=== PATIENT | male | born 1965 | race African-American/Black ===

== ENCOUNTER 2017-07-17 20:13 | Emergency (ER) | payer MEDICARE, OTHER ==
[~2017-07-17] VITALS: Ht 185.4 cm; Wt 86.0 kg
[~2017-07-17 20:13] MED LIST: AMLO-512 PO; ASPI81TA39 PO; ATOR20TA86 PO; CARV25 PO; CLON-570 PO; DSS100 PO; FURO20 PO; LISI-662 PO; QUET300T2 PO; SERT100T12 PO; SLOWK8 PO
[2017-07-18] MEDS ORDERED: KETOROLAC TROMETHAMINE 30 MG/ML VIAL IM ONE (00:30)
[2017-07-18 03:43] VITALS: BP 156/93
== END 2017-07-18 03:53 | disposition home or self-care (01) ==
LOC: EMS 21:52
DX: G89.29 Other chronic pain (principal); M25.552 Pain in left hip; F31.9 Bipolar disorder, unspecified; E78.00 Pure hypercholesterolemia, unspecified; I11.0 Hypertensive heart disease with heart failure; I50.9 Heart failure, unspecified; F15.10 Other stimulant abuse, uncomplicated; F11.10 Opioid abuse, uncomplicated; Z59.0 Homelessness; W19.XXXA Unspecified fall, initial encounter; Y93.89 Activity, other specified; Y92.89 Other specified places as the place of occurrence of the external cause; Y99.8 Other external cause status
CPT/HCPCS: 73503; 96372; 99284; J1885

== ENCOUNTER 2017-08-07 21:20 | Emergency (ER) | payer MEDICARE, OTHER ==
[~2017-08-07] VITALS: Ht 185.4 cm; Wt 86.4 kg
[2017-08-07 21:58] LABS: BASOPHILS % (AUTO) 0.3 % (0.0-2.0); EOSINOPHILS % (AUTO) 0.7 % (1.0-6.0); HEMOGLOBIN 13.4 g/dL (13.5-17.5); LYMPHOCYTES # (AUTO) 0.9 K/uL (1.0-4.8); LYMPHOCYTES % (AUTO) 11.2 % (22.0-44.0); MEAN CORPUSCULAR HEMOGLOBIN 27.8 pg (26.0-34.0); MEAN CORPUSCULAR HGB CONC 33.4 G/dL (31.0-37.0); MEAN CORPUSCULAR VOLUME 83 fL (80-100); MONOCYTES # (AUTO) 0.8 K/uL (0.1-1.0); MONOCYTES % (AUTO) 9.8 % (2.0-9.0); NEUTROPHILS # (AUTO) 6.5 K/uL (1.8-7.7); PLATELET COUNT (AUTO) 245 K/uL (150-450); RED BLOOD CELL COUNT(AUTO) 4.81 MIL/uL (4.50-5.90); RED CELL DISTRIBUTION WIDTH 15.5 % (11.5-14.5)
[2017-08-07] MEDS ORDERED: IBUPROFEN 600 MG TABLET PO ONE (22:00)
[2017-08-07] MEDS ORDERED: TraMADol HCL 50 MG TABLET PO ONE (22:00)
[2017-08-07 22:08] LABS: ALANINE AMINOTRANSFERASE 18 U/L (12-78); ALBUMIN 3.3 g/dL (3.4-5.0); ALKALINE PHOSPHATASE 125 U/L (46-116); ANION GAP 9 mmol/L (8-16); ASPARTATE AMINOTRANSFERASE 18 U/L (15-37); BILIRUBIN,TOTAL 0.6 mg/dL (0.1-1.0); CARBON DIOXIDE 29 mmol/L (22-29); CHLORIDE 102 mmol/L (98-107); CREATININE 0.94 mg/dL (0.60-1.30); GLOMERULAR FILTR. RATE CALC > 60 mL/min (>60); GLUCOSE,RANDOM 132 mg/dL (70-110); SODIUM SERUM 140 mmol/L (136-145); TOTAL PROTEIN, SERUM 8.4 g/dL (6.4-8.2); UREA NITROGEN, BLOOD 17 mg/dL (7-18)
[2017-08-07 22:16] LABS: POTASSIUM 2.8 mmol/L (3.5-5.1)
[2017-08-07] MEDS ORDERED: POTASSIUM CHLORIDE 10% 40 MEQ/30 ML LIQUID UDCUP PO ONE (22:30)
[2017-08-08 00:14] VITALS: BP 142/93
== END 2017-08-08 00:39 | disposition home or self-care (01) ==
LOC: EMS 21:21
DX: S70.02XA Contusion of left hip, initial encounter (principal); E87.6 Hypokalemia; M16.0 Bilateral primary osteoarthritis of hip; F20.9 Schizophrenia, unspecified; E78.00 Pure hypercholesterolemia, unspecified; I11.0 Hypertensive heart disease with heart failure; I50.9 Heart failure, unspecified; F31.9 Bipolar disorder, unspecified; Z59.0 Homelessness; W18.39XA Other fall on same level, initial encounter; Y93.89 Activity, other specified; Y92.89 Other specified places as the place of occurrence of the external cause; Y99.8 Other external cause status
CPT/HCPCS: 36415; 72170; 80053; 85025; 99285; G0480

== ENCOUNTER → 2019-08-03 | Outpatient (CLI) | payer MEDICARE, OTHER ==
[~2019-08-03] MED LIST changes: +ACET-784 PO; -AMLO-512 PO; +AMLO10TA7 PO; +APIX5TAB PO; -ASPI81TA39 PO; -ATOR20TA86 PO; +BISA-151 PO; +CARB-101 PO; -CLON-570 PO; -DSS100 PO; -FURO20 PO; +HYDR-1475 PO; +HYDR-4455 PO; -LISI-662 PO; +LISI40TA4 PO; +MELA1TAB28 PO; +MOM30 PO; +MULT1CAP32 PO; +PANT40VI14 IVP; -QUET300T2 PO; -SERT100T12 PO; -SLOWK8 PO; +TEMA15CA PO; +TRAZ-186 PO
[2019-08-03 11:47] VITALS: BP 138/91
== END | disposition home or self-care (01) ==
LOC: SRCNTR 11:46
PROVIDERS: ATTEND Hospitalist
DX: I11.0 Hypertensive heart disease with heart failure (principal); I50.42 Chronic combined systolic (congestive) and diastolic (congestive) heart failure; M16.11 Unilateral primary osteoarthritis, right hip; I42.9 Cardiomyopathy, unspecified; G89.4 Chronic pain syndrome; F11.10 Opioid abuse, uncomplicated; F20.9 Schizophrenia, unspecified; G20 Parkinson's disease
CPT/HCPCS: G0463

== ENCOUNTER 2022-04-28 08:31 | Inpatient (IN) | payer MEDICARE, MEDICAID ==
[~2022-04-28] VITALS: Ht 172.7 cm; Wt 112.1 kg
[~2022-04-28 08:31] MED LIST changes: +AMLO-258 PO; -AMLO10TA7 PO; -CARB-101 PO; +CARB-314 PO; -HYDR-1475 PO; +HYDR25TA2 PO; -LISI40TA4 PO; +LISI40TA9 PO; +MAGN-169 PO; -MELA1TAB28 PO; -MOM30 PO
[2022-04-28] MEDS ORDERED: PROPOFOL 1000 MG/ISO-OSM 0 ML ONE (08:43)
[2022-04-28] MEDS ORDERED: KETAMINE HCL 50 MG/ML 10 ML VIAL IVP ONE (08:45)
[2022-04-28] MEDS ORDERED: KETAMINE HCL 500 MG in DEXTROSE 5%-WATER 490 ML IV PRN (08:45)
[2022-04-28] MEDS ORDERED: KETAMINE HCL 50 MG/ML 10 ML VIAL ONE (08:46)
[2022-04-28] MEDS ORDERED: FUROSEMIDE 40 MG/4 ML VIAL IVP ONE (09:00)
[2022-04-28] MEDS ORDERED: NITROGLYCERIN 2% (1 GM=INCH) OINTMENT PACKET TP ONE (09:00)
[2022-04-28 09:13] LABS: BASOPHILS % (AUTO) 0.3 % (0.0-2.0); EOSINOPHILS % (AUTO) 0 % (1.0-6.0); HEMATOCRIT 43.5 % (41-53); HEMOGLOBIN 14.2 g/dL (13.5-17.5); LYMPHOCYTES # (AUTO) 0.4 K/uL (1.0-4.8); LYMPHOCYTES % (AUTO) 2.4 % (22.0-44.0); MEAN CORPUSCULAR HEMOGLOBIN 28.6 pg (26.0-34.0); MEAN CORPUSCULAR HGB CONC 32.7 G/dL (31.0-37.0); MEAN CORPUSCULAR VOLUME 87 fL (80-100); MONOCYTES % (AUTO) 6.4 % (2.0-9.0); NEUTROPHILS # (AUTO) 14.5 K/uL (1.8-7.7); PLATELET COUNT (AUTO) 227 K/uL (150-450); RED BLOOD CELL COUNT(AUTO) 4.99 MIL/uL (4.50-5.90); RED CELL DISTRIBUTION WIDTH 14.1 % (11.5-14.5)
[2022-04-28 09:22] LABS: PROTHROMBIN TIME 11.1 SEC (9.4-11.6)
[2022-04-28 09:30] LABS: NEUTROPHILS % (AUTO) 90.9 % (40.0-70.0)
[2022-04-28 09:32] LABS: CALCIUM, TOTAL 9.5 mg/dL (8.8-10.5); CREATININE 2.78 mg/dL (0.60-1.30); POTASSIUM 3.2 mmol/L (3.5-5.1)
[2022-04-28 09:54] LABS: ABG BASE EXCESS -2.2 mmol/L (-2.0-3.0); ABG CARBOXYHEMOGLOBIN 0.4 % (0.0-1.5); ABG HCO3 23.1 mmol/L (22.0-26.0); ABG METHEMOGLOBIN 0.2 % (0.0-1.5); ABG OXYGEN CONTENT 20.8 mL/dL (15.0-23.0); ABG OXYGEN SATURATION 98.5 % (95.0-98.0); ABG OXYHEMOGLOBIN 97.9 % (94.0-100.0); ABG PCO2 36 mmHg (35-45); ABG PH 7.409 (7.35-7.450); SITE, BLOOD GAS LFT RADIAL; SOURCE, BLOOD GAS ARTERIAL; TEMPERATURE, FAHRENHEIT, BG 98.6 FAHREN (96.0-98.6)
[2022-04-28 09:55] LABS: ABG A-A DIFF O2 558.7 mmHg (10-20.0); O2 DEVICE,BLOOD GAS VENTILATOR (ROOM AIR); PEEP,BG 5 cm H2O; VT, ABG 450 ml
[2022-04-28 10:05] LABS: ALBUMIN 3.4 g/dL (3.4-5.0); BILIRUBIN,TOTAL 0.7 mg/dL (0.1-1.0); TOTAL PROTEIN, SERUM 8.8 g/dL (6.4-8.2)
[2022-04-28 10:09] LABS: COVID AG,FIA SOURCE NASAL SWAB
[2022-04-28 10:58] LABS: INFLUENZA TYPE A NEGATIVE FOR TYPE A (NEGATIVE); INFLUENZA TYPE B NEGATIVE FOR TYPE B (NEGATIVE)
[2022-04-28 11:05] LABS: APPEARANCE,URINE HAZY (CLEAR); BILIRUBIN,URINE NEGATIVE (NEGATIVE); GLUCOSE, URINE (UA) TRACE mg/dL (NEGATIVE); KETONES,URINE TRACE mg/dL (NEGATIVE); LEUKOCYTE ESTERASE ,URINE TRACE (NEGATIVE); NITRATE,URINE NEGATIVE (NEGATIVE); OCCULT BLOOD,URINE SMALL (NEGATIVE); PH,URINE 5.5 (5.0-8.0); PROTEIN,URINE 300-600,SEE CONFIRM mg/dL (NEGATIVE); SPECIFIC GRAVITIY, URINE 1.023 (1.003-1.030)
[2022-04-28 11:10] LABS: AMPHET/METH SCREEN,URINE POSITIVE (NEGATIVE); BARBITURATE SCREEN, URINE NEGATIVE (NEGATIVE); BENZODIAZEPINES SCREEN,URINE NEGATIVE (NEGATIVE); CANNABINOID SCREEN,URINE NEGATIVE (NEGATIVE); COCAINE SCREEN,URINE NEGATIVE (NEGATIVE); METHADONE SCREEN, URINE NEGATIVE (NEGATIVE); OPIATE SCREEN,URINE POSITIVE (NEGATIVE)
[2022-04-28 11:11] LABS: PHENCYCLIDINE SCREEN,URINE NEGATIVE (NEGATIVE)
[2022-04-28 11:14] LABS: SQUAMOUS EPITHELIAL CELL,UR None Seen /LPF (None Seen); SULFOSALICYLIC ACID,URINE 4+ (Negative)
[2022-04-28 11:17] LABS: BACTERIA,URINE Few /HPF (None Seen); WBC,URINE 0-2 /HPF (0-5)
[2022-04-28] MEDS: PIPERACILLIN/TAZO 3.375 GM/D5W 50 ML IV SCH ×3 (11:26→23:52)
[2022-04-28] MEDS: DOXYCYCLINE HYCLATE 100 MG in DEXTROSE 5%-WATER 100 ML IV SCH ×2 (12:00→20:47)
[2022-04-28] MEDS ORDERED: PROPOFOL 1000 MG/ISO-OSM 100 ML ONE (13:14)
[2022-04-28] MEDS: PROPOFOL 1000 MG/ISO-OSM 100 ML IV PRN ×2 (13:24→18:04)
[2022-04-28] MEDS ORDERED: PERFLUTREN PROTEIN-A MICROSPHERES 0.22 MG/ML 3 ML VIAL IVP ONE (14:15)
[2022-04-28] MEDS ORDERED: MAGNESIUM HYDROXIDE SUSPENSION 30 ML UDCUP PO PRN (15:15)
[2022-04-28] MEDS ORDERED: ALBUTEROL SULFATE 2.5 MG/0.5 ML NEB SOLUTION NEB PRN (15:15)
[2022-04-28] MEDS ORDERED: ACETAMINOPHEN 325 MG TABLET PO PRN (15:15)
[2022-04-28] MEDS ORDERED: ONDANSETRON HCL 4 MG/2 ML VIAL IVP PRN (15:15)
[2022-04-28] MEDS ORDERED: BISACODYL 10 MG RECTAL RECTAL SUPPOSITORY PR PRN (15:15)
[2022-04-28] MEDS ORDERED: IPRATROPIUM BROMIDE 0.5 MG/2.5 ML NEB SOLUTION NEB PRN (15:15)
[2022-04-28] MEDS ORDERED: ZOLPIDEM TARTRATE 5 MG TABLET PO PRN (15:15)
[2022-04-28] MEDS ORDERED: GABA-529 PO (15:27)
[2022-04-28] MEDS ORDERED: MULT-660 PO (15:27)
[2022-04-28] MEDS: BENZONATATE 100 MG CAPSULE PO SCH ×2 (16:00→20:48)
[2022-04-28] MEDS: CARBIDOPA/LEVODOPA 25-100 MG TABLET PO SCH ×2 (16:34→20:47)
[2022-04-28] MEDS ORDERED: SODIUM CHLORIDE 0.9% 250 ML IV ONE (17:56)
[2022-04-28] MEDS: FentaNYL CIT 1000MCG/0.9% NACL 100 ML IV PRN (18:11)
[2022-04-28] MEDS: MethylPREDNISolone SOD SUCC 125 MG/2 ML VIAL IVP SCH ×2 (18:12→23:53)
[2022-04-28] MEDS: IPRATROPIUM BROMIDE 0.5 MG/2.5 ML NEB SOLUTION NEB SCH (19:34)
[2022-04-28] MEDS: ALBUTEROL SULFATE 2.5 MG/0.5 ML NEB SOLUTION NEB SCH (19:34)
[2022-04-28 20:00] VITALS: BP 130/81
[2022-04-28] MEDS: APIXABAN 5 MG TABLET PO SCH (20:47)
[2022-04-28] MEDS: CARVEDILOL 25 MG TABLET PO SCH (20:47)
[2022-04-28] MEDS: DOCUSATE SODIUM 100 MG/10 ML LIQUID UDCUP NG SCH (20:48)
[2022-04-28] MEDS ORDERED: DOCUSATE SODIUM 100 MG CAPSULE PO SCH (21:00)
[2022-04-28] MEDS ORDERED: GuaiFENesin SR 600 MG ER TABLET PO SCH (21:00)
[2022-04-29] VITALS: BP 120/84
[2022-04-29] MEDS: ALBUTEROL SULFATE 2.5 MG/0.5 ML NEB SOLUTION NEB SCH ×4 (01:42→20:34)
[2022-04-29] MEDS: IPRATROPIUM BROMIDE 0.5 MG/2.5 ML NEB SOLUTION NEB SCH ×4 (01:42→20:35)
[2022-04-29] MEDS ORDERED: INFLUENZA VIRUS VACCINE QVS 2022-23 (6MO+)/PF 60 MCG/0.5 ML SYRINGE IM. ONE (03:30)
[2022-04-29 04:00] VITALS: BP 101/68
[2022-04-29] MEDS ORDERED: PROPOFOL 1000 MG/ISO-OSM 100 ML ONE (05:06)
[2022-04-29 05:19] LABS: BASOPHILS % (AUTO) 0.3 % (0.0-2.0); EOSINOPHILS % (AUTO) 0 % (1.0-6.0); HEMATOCRIT 39.1 % (41-53); LYMPHOCYTES # (AUTO) 0.5 K/uL (1.0-4.8); LYMPHOCYTES % (AUTO) 3.4 % (22.0-44.0); MEAN CORPUSCULAR HEMOGLOBIN 29.4 pg (26.0-34.0); MEAN CORPUSCULAR HGB CONC 33.3 G/dL (31.0-37.0); MEAN CORPUSCULAR VOLUME 88 fL (80-100); MONOCYTES # (AUTO) 0.4 K/uL (0.1-1.0); MONOCYTES % (AUTO) 2.8 % (2.0-9.0); NEUTROPHILS # (AUTO) 12.5 K/uL (1.8-7.7); PLATELET COUNT (AUTO) 192 K/uL (150-450); RED BLOOD CELL COUNT(AUTO) 4.42 MIL/uL (4.50-5.90); RED CELL DISTRIBUTION WIDTH 14.5 % (11.5-14.5)
[2022-04-29 05:24] LABS: NEUTROPHILS % (AUTO) 93.5 % (40.0-70.0)
[2022-04-29 05:25] LABS: CALCIUM, TOTAL 8.5 mg/dL (8.8-10.5); CREATININE 2.74 mg/dL (0.60-1.30); POTASSIUM 3.5 mmol/L (3.5-5.1)
[2022-04-29] MEDS: PIPERACILLIN/TAZO 3.375 GM/D5W 50 ML IV SCH ×3 (05:57→18:04)
[2022-04-29] MEDS: MethylPREDNISolone SOD SUCC 125 MG/2 ML VIAL IVP SCH ×3 (05:58→18:05)
[2022-04-29] MEDS: PROPOFOL 1000 MG/ISO-OSM 100 ML IV PRN ×2 (06:09→16:32)
[2022-04-29 08:00] VITALS: BP 103/74
[2022-04-29] MEDS: DOCUSATE SODIUM 100 MG/10 ML LIQUID UDCUP NG SCH ×2 (08:37→20:46)
[2022-04-29] MEDS: APIXABAN 5 MG TABLET PO SCH ×2 (08:37→20:46)
[2022-04-29] MEDS: CARBIDOPA/LEVODOPA 25-100 MG TABLET PO SCH ×3 (08:38→20:45)
[2022-04-29] MEDS: CARVEDILOL 25 MG TABLET PO SCH ×2 (08:38→20:46)
[2022-04-29] MEDS: AmLODIPine BESYLATE 10 MG TABLET PO SCH (08:38)
[2022-04-29] MEDS: DOXYCYCLINE HYCLATE 100 MG in DEXTROSE 5%-WATER 100 ML IV SCH ×2 (08:40→20:45)
[2022-04-29] MEDS ORDERED: PANTOPRAZOLE SODIUM 40 MG DR TABLET PO SCH (09:00)
[2022-04-29] MEDS: SODIUM CHLORIDE 0.9% 1,000 ML IV SCH (11:45)
[2022-04-29 11:59] LABS: APPEARANCE,URINE CLEAR (CLEAR); BILIRUBIN,URINE NEGATIVE (NEGATIVE); GLUCOSE, URINE (UA) NEGATIVE (NEGATIVE); KETONES,URINE NEGATIVE (NEGATIVE); LEUKOCYTE ESTERASE ,URINE SMALL (NEGATIVE); NITRATE,URINE NEGATIVE (NEGATIVE); OCCULT BLOOD,URINE NEGATIVE (NEGATIVE); PROTEIN,URINE TRACE mg/dL (NEGATIVE); SPECIFIC GRAVITIY, URINE 1.023 (1.003-1.030); UROBILINOGEN,URINE <=1.0 mg/dL (<=1.0)
[2022-04-29 12:00] VITALS: BP 136/90
[2022-04-29 12:01] LABS: BACTERIA,URINE None Seen /HPF (None Seen); RBC,URINE None Seen /HPF (0-2)
[2022-04-29 12:19] LABS: CREATININE,URINE RANDOM 193.9 mg/dL (30.0-125.0); PROTEIN,URINE RANDOM 47 mg/dL (0-11.9); SODIUM,URINE RANDOM 6 mmol/l (20-110); UREA NITROGEN,URINE RANDOM 641 mg/dL (350-1000)
[2022-04-29 16:00] VITALS: BP 98/67
[2022-04-29] MEDS: FentaNYL CIT 1000MCG/0.9% NACL 100 ML IV PRN (16:32)
[2022-04-29 19:49] LABS: CALCIUM, TOTAL 8.8 mg/dL (8.8-10.5); CREATININE 2.75 mg/dL (0.60-1.30); POTASSIUM 3.5 mmol/L (3.5-5.1)
[2022-04-29 19:55] LABS: ALBUMIN 2.5 g/dL (3.4-5.0); BILIRUBIN,TOTAL 0.4 mg/dL (0.1-1.0); MAGNESIUM 2.3 mg/dL (1.80-2.40); PHOSPHORUS 4.5 mg/dL (2.5-4.9); TOTAL PROTEIN, SERUM 7.8 g/dL (6.4-8.2)
[2022-04-29 20:00] VITALS: BP 106/68
[2022-04-30] VITALS: BP 114/76
[2022-04-30] MEDS: ALBUTEROL SULFATE 2.5 MG/0.5 ML NEB SOLUTION NEB SCH ×4 (01:36→19:31)
[2022-04-30] MEDS: IPRATROPIUM BROMIDE 0.5 MG/2.5 ML NEB SOLUTION NEB SCH ×4 (01:36→19:31)
[2022-04-30] MEDS: PROPOFOL 1000 MG/ISO-OSM 100 ML IV PRN (02:51)
[2022-04-30] MEDS: SODIUM CHLORIDE 0.9% 1,000 ML IV SCH ×2 (02:55→14:19)
[2022-04-30 04:00] VITALS: BP 130/78
[2022-04-30 05:27] LABS: BASOPHILS % (AUTO) 0.1 % (0.0-2.0); EOSINOPHILS % (AUTO) 0 % (1.0-6.0); HEMATOCRIT 38.9 % (41-53); HEMOGLOBIN 12.9 g/dL (13.5-17.5); LYMPHOCYTES # (AUTO) 0.4 K/uL (1.0-4.8); LYMPHOCYTES % (AUTO) 3.4 % (22.0-44.0); MEAN CORPUSCULAR HEMOGLOBIN 29.1 pg (26.0-34.0); MEAN CORPUSCULAR HGB CONC 33.3 G/dL (31.0-37.0); MEAN CORPUSCULAR VOLUME 88 fL (80-100); MONOCYTES # (AUTO) 0.6 K/uL (0.1-1.0); MONOCYTES % (AUTO) 5.3 % (2.0-9.0); NEUTROPHILS # (AUTO) 10.6 K/uL (1.8-7.7); PLATELET COUNT (AUTO) 199 K/uL (150-450); RED BLOOD CELL COUNT(AUTO) 4.44 MIL/uL (4.50-5.90); RED CELL DISTRIBUTION WIDTH 14.3 % (11.5-14.5)
[2022-04-30 05:31] LABS: NEUTROPHILS % (AUTO) 91.2 % (40.0-70.0)
[2022-04-30 05:35] LABS: CALCIUM, TOTAL 8.6 mg/dL (8.8-10.5); CREATININE 2.41 mg/dL (0.60-1.30); MAGNESIUM 2.2 mg/dL (1.80-2.40); PHOSPHORUS 4.3 mg/dL (2.5-4.9); POTASSIUM 3.3 mmol/L (3.5-5.1)
[2022-04-30] MEDS: MethylPREDNISolone SOD SUCC 125 MG/2 ML VIAL IVP SCH ×5 (05:36→23:41)
[2022-04-30] MEDS: PIPERACILLIN/TAZO 3.375 GM/D5W 50 ML IV SCH ×5 (05:36→23:40)
[2022-04-30 08:00] VITALS: BP 148/89
[2022-04-30] MEDS ORDERED: SODIUM CHLORIDE 0.9% 250 ML IV ONE (08:11)
[2022-04-30] MEDS: DOXYCYCLINE HYCLATE 100 MG in DEXTROSE 5%-WATER 100 ML IV SCH ×2 (08:14→20:34)
[2022-04-30] MEDS: DOCUSATE SODIUM 100 MG/10 ML LIQUID UDCUP NG SCH ×2 (08:14→20:33)
[2022-04-30] MEDS: AmLODIPine BESYLATE 10 MG TABLET PO SCH (08:14)
[2022-04-30] MEDS: APIXABAN 5 MG TABLET PO SCH ×2 (08:14→20:33)
[2022-04-30] MEDS: CARVEDILOL 25 MG TABLET PO SCH ×2 (08:14→20:33)
[2022-04-30] MEDS: PANTOPRAZOLE SODIUM 40 MG/VIAL IVP SCH (08:14)
[2022-04-30] MEDS: CARBIDOPA/LEVODOPA 25-100 MG TABLET PO SCH ×3 (08:14→20:33)
[2022-04-30] MEDS: ETHYL ALCOHOL 62% ANTISEPTIC NASAL SANITIZER 0.6 ML AMPUL NASAL SCH ×2 (08:14→20:33)
[2022-04-30] MEDS: DEXMEDETOMIDINE HCL 400 MCG in SODIUM CHLORIDE 0.9% 96 ML IV PRN (10:18)
[2022-04-30 10:58] LABS: ABG BASE EXCESS -1.3 mmol/L (-2.0-3.0); ABG CARBOXYHEMOGLOBIN 0.4 % (0.0-1.5); ABG HCO3 23.6 mmol/L (22.0-26.0); ABG METHEMOGLOBIN 0.3 % (0.0-1.5); ABG OXYGEN CONTENT 17.9 mL/dL (15.0-23.0); ABG OXYGEN SATURATION 95.6 % (95.0-98.0); ABG OXYHEMOGLOBIN 94.9 % (94.0-100.0); ABG PCO2 39 mmHg (35-45); ABG PH 7.401 (7.35-7.450); ABG TOTAL HEMOGLOBIN 13.4 G/dL (12.0-18.0); PO2, ARTERIAL BG 77.7 mmHg (84.0-92.0); SITE, BLOOD GAS LFT RADIAL; SOURCE, BLOOD GAS ARTERIAL; TEMPERATURE, FAHRENHEIT, BG 98.2 FAHREN (96.0-98.6)
[2022-04-30 10:59] LABS: ABG A-A DIFF O2 90.8 mmHg (10-20.0); CPAP, BG 0 cm H2O; O2 DEVICE,BLOOD GAS VENTILATOR (ROOM AIR); PRESSURE SUPPORT, BG 8 cm H2O; SPONTANEOUS VT, BG 475 ml; VENT MODE, BG CPAP (ROOM AIR)
[2022-04-30 12:00] VITALS: BP 152/69
[2022-04-30] MEDS ORDERED: POTASSIUM CHLORIDE 10% 40 MEQ/30 ML LIQUID UDCUP NG ONE (15:00)
[2022-04-30 16:00] VITALS: BP 141/87
[2022-04-30 18:07] LABS: LEGIONELLA PNEUMO AG URINE Negative (Negative); S PNEUMO SOURCE Urine; STREP PNEUMONIAE AG URINE Negative (Negative)
[2022-04-30 20:00] VITALS: BP 141/85
[2022-05-01] VITALS: BP 149/87
[2022-05-01] MEDS: DEXMEDETOMIDINE HCL 400 MCG in SODIUM CHLORIDE 0.9% 96 ML IV PRN (01:20)
[2022-05-01] MEDS: ALBUTEROL SULFATE 2.5 MG/0.5 ML NEB SOLUTION NEB SCH ×2 (01:48→08:32)
[2022-05-01] MEDS: IPRATROPIUM BROMIDE 0.5 MG/2.5 ML NEB SOLUTION NEB SCH ×2 (01:48→08:32)
[2022-05-01] MEDS: SODIUM CHLORIDE 0.9% 1,000 ML IV SCH ×2 (03:33→19:58)
[2022-05-01 04:00] VITALS: BP 148/87
[2022-05-01] MEDS: PIPERACILLIN/TAZO 3.375 GM/D5W 50 ML IV SCH ×3 (05:40→18:17)
[2022-05-01] MEDS: MethylPREDNISolone SOD SUCC 125 MG/2 ML VIAL IVP SCH ×3 (05:41→18:16)
[2022-05-01 06:05] LABS: BASOPHILS % (AUTO) 0.1 % (0.0-2.0); EOSINOPHILS % (AUTO) 0 % (1.0-6.0); HEMATOCRIT 40.3 % (41-53); HEMOGLOBIN 13.3 g/dL (13.5-17.5); LYMPHOCYTES # (AUTO) 0.3 K/uL (1.0-4.8); LYMPHOCYTES % (AUTO) 3.1 % (22.0-44.0); MEAN CORPUSCULAR HGB CONC 33.1 G/dL (31.0-37.0); MEAN CORPUSCULAR VOLUME 88 fL (80-100); MONOCYTES # (AUTO) 0.5 K/uL (0.1-1.0); MONOCYTES % (AUTO) 4.6 % (2.0-9.0); NEUTROPHILS # (AUTO) 9.9 K/uL (1.8-7.7); PLATELET COUNT (AUTO) 203 K/uL (150-450); RED CELL DISTRIBUTION WIDTH 13.9 % (11.5-14.5)
[2022-05-01 06:15] LABS: NEUTROPHILS % (AUTO) 92.2 % (40.0-70.0)
[2022-05-01 06:17] LABS: CALCIUM, TOTAL 8.4 mg/dL (8.8-10.5); CREATININE 1.45 mg/dL (0.60-1.30); POTASSIUM 3.4 mmol/L (3.5-5.1)
[2022-05-01 08:00] VITALS: BP 166/92
[2022-05-01] MEDS: PANTOPRAZOLE SODIUM 40 MG/VIAL IVP SCH (09:05)
[2022-05-01] MEDS: DOCUSATE SODIUM 100 MG/10 ML LIQUID UDCUP NG SCH ×2 (09:05→21:22)
[2022-05-01] MEDS: ETHYL ALCOHOL 62% ANTISEPTIC NASAL SANITIZER 0.6 ML AMPUL NASAL SCH ×2 (09:05→21:22)
[2022-05-01] MEDS: DOXYCYCLINE HYCLATE 100 MG in DEXTROSE 5%-WATER 100 ML IV SCH ×2 (09:05→21:22)
[2022-05-01] MEDS: CARVEDILOL 25 MG TABLET PO SCH ×2 (09:06→21:22)
[2022-05-01] MEDS: AmLODIPine BESYLATE 10 MG TABLET PO SCH (09:06)
[2022-05-01] MEDS: APIXABAN 5 MG TABLET PO SCH ×2 (09:06→21:22)
[2022-05-01] MEDS: CARBIDOPA/LEVODOPA 25-100 MG TABLET PO SCH ×3 (09:06→21:22)
[2022-05-01] MEDS ORDERED: POTASSIUM CHLORIDE 20 MEQ ER TABLET PO ONE (09:45)
[2022-05-01 12:00] VITALS: BP 163/96
[2022-05-01 16:00] VITALS: BP 171/101
[2022-05-01] MEDS: HydrALAZINE HCL 20 MG/ML VIAL IVP PRN (19:14)
[2022-05-01 20:00] VITALS: BP 182/101
[2022-05-01] MEDS: NITROGLYCERIN 2% (1 GM=INCH) OINTMENT PACKET TP SCH (21:55)
[2022-05-02] VITALS (7 sets, daily range): BP systolic 121–185; BP diastolic 69–97
[2022-05-02] MEDS: MethylPREDNISolone SOD SUCC 125 MG/2 ML VIAL IVP SCH ×5 (00:23→23:52)
[2022-05-02] MEDS: PIPERACILLIN/TAZO 3.375 GM/D5W 50 ML IV SCH ×5 (00:23→23:51)
[2022-05-02] MEDS: HYDROCODONE/ACETAMINOPHEN 5-325 MG TABLET PO PRN ×2 (02:18→20:29)
[2022-05-02] MEDS: NITROGLYCERIN 2% (1 GM=INCH) OINTMENT PACKET TP SCH ×4 (04:50→23:53)
[2022-05-02] MEDS: HydrALAZINE HCL 20 MG/ML VIAL IVP PRN (04:51)
[2022-05-02] MEDS: ETHYL ALCOHOL 62% ANTISEPTIC NASAL SANITIZER 0.6 ML AMPUL NASAL SCH ×2 (08:48→20:30)
[2022-05-02] MEDS: PANTOPRAZOLE SODIUM 40 MG/VIAL IVP SCH (08:49)
[2022-05-02] MEDS: CARBIDOPA/LEVODOPA 25-100 MG TABLET PO SCH ×3 (08:49→20:30)
[2022-05-02] MEDS: APIXABAN 5 MG TABLET PO SCH ×2 (08:49→20:30)
[2022-05-02] MEDS: DOCUSATE SODIUM 100 MG/10 ML LIQUID UDCUP NG SCH ×2 (08:50→21:00)
[2022-05-02] MEDS: DOXYCYCLINE HYCLATE 100 MG in DEXTROSE 5%-WATER 100 ML IV SCH ×2 (08:50→20:38)
[2022-05-02] MEDS: AmLODIPine BESYLATE 10 MG TABLET PO SCH (08:56)
[2022-05-02] MEDS: CARVEDILOL 25 MG TABLET PO SCH ×2 (09:39→20:29)
[2022-05-02] MEDS: MORPHINE SULFATE 2 MG/ML SYRINGE IVP PRN (12:02)
[2022-05-02] MEDS: SODIUM CHLORIDE 0.9% 1,000 ML IV SCH (15:05)
[2022-05-02] MEDS: MAG HYDROX/AL HYDROX/SIMETH ES 30 ML SUSPENSION UDCUP PO PRN (17:43)
[2022-05-03 04:16] VITALS: BP 171/86
[2022-05-03 06:13] LABS: BASOPHILS % (AUTO) 0.3 % (0.0-2.0); EOSINOPHILS % (AUTO) 0 % (1.0-6.0); HEMATOCRIT 39.2 % (41-53); LYMPHOCYTES # (AUTO) 0.6 K/uL (1.0-4.8); LYMPHOCYTES % (AUTO) 5.6 % (22.0-44.0); MEAN CORPUSCULAR HEMOGLOBIN 28.5 pg (26.0-34.0); MEAN CORPUSCULAR HGB CONC 33.2 G/dL (31.0-37.0); MEAN CORPUSCULAR VOLUME 86 fL (80-100); MONOCYTES # (AUTO) 0.9 K/uL (0.1-1.0); MONOCYTES % (AUTO) 7.9 % (2.0-9.0); NEUTROPHILS # (AUTO) 9.4 K/uL (1.8-7.7); PLATELET COUNT (AUTO) 204 K/uL (150-450); RED BLOOD CELL COUNT(AUTO) 4.56 MIL/uL (4.50-5.90); RED CELL DISTRIBUTION WIDTH 14.2 % (11.5-14.5)
[2022-05-03] MEDS: NITROGLYCERIN 2% (1 GM=INCH) OINTMENT PACKET TP SCH ×3 (06:19→17:07)
[2022-05-03] MEDS: PIPERACILLIN/TAZO 3.375 GM/D5W 50 ML IV SCH ×3 (06:21→17:07)
[2022-05-03 06:25] LABS: ANION GAP 9 mmol/L (8-16); CALCIUM, TOTAL 8.3 mg/dL (8.8-10.5); CARBON DIOXIDE 26 mmol/L (22-29); CHLORIDE 103 mmol/L (98-107); CREATININE 0.98 mg/dL (0.60-1.30); GLUCOSE,RANDOM 125 mg/dL (70-110); NEUTROPHILS % (AUTO) 86.2 % (40.0-70.0); POTASSIUM 3.4 mmol/L (3.5-5.1); SODIUM SERUM 138 mmol/L (136-145); UREA NITROGEN, BLOOD 19 mg/dL (7-18)
[2022-05-03 06:43] LABS: GLOMERULAR FILTR. RATE CALC > 60 mL/min (>60)
[2022-05-03] MEDS: SODIUM CHLORIDE 0.9% 1,000 ML IV SCH ×2 (06:46→20:50)
[2022-05-03] MEDS: MethylPREDNISolone SOD SUCC 125 MG/2 ML VIAL IVP SCH (08:00)
[2022-05-03 08:08] VITALS: BP 157/80
[2022-05-03] MEDS: AmLODIPine BESYLATE 10 MG TABLET PO SCH (08:24)
[2022-05-03] MEDS: PANTOPRAZOLE SODIUM 40 MG/VIAL IVP SCH (08:24)
[2022-05-03] MEDS: PredniSONE 10 MG TABLET PO SCH (08:24)
[2022-05-03] MEDS: APIXABAN 5 MG TABLET PO SCH ×2 (08:24→20:49)
[2022-05-03] MEDS: CARBIDOPA/LEVODOPA 25-100 MG TABLET PO SCH ×3 (08:24→20:49)
[2022-05-03] MEDS: CARVEDILOL 25 MG TABLET PO SCH ×2 (08:24→20:49)
[2022-05-03] MEDS: DOXYCYCLINE HYCLATE 100 MG in DEXTROSE 5%-WATER 100 ML IV SCH ×2 (08:25→20:49)
[2022-05-03] MEDS: DOCUSATE SODIUM 100 MG/10 ML LIQUID UDCUP NG SCH ×2 (08:25→21:00)
[2022-05-03] MEDS: ETHYL ALCOHOL 62% ANTISEPTIC NASAL SANITIZER 0.6 ML AMPUL NASAL SCH ×2 (08:25→20:51)
[2022-05-03 11:30] VITALS: BP 160/79
[2022-05-03] MEDS ORDERED: POTASSIUM CHLORIDE 20 MEQ ER TABLET PO ONE (11:45)
[2022-05-03 15:50] VITALS: BP 140/82
[2022-05-03 19:55] VITALS: BP 139/73
[2022-05-03] MEDS: HYDROCODONE/ACETAMINOPHEN 5-325 MG TABLET PO PRN (20:49)
[2022-05-04] VITALS (7 sets, daily range): BP systolic 122–167; BP diastolic 70–93
[2022-05-04] MEDS: PIPERACILLIN/TAZO 3.375 GM/D5W 50 ML IV SCH ×4 (00:16→19:40)
[2022-05-04] MEDS: NITROGLYCERIN 2% (1 GM=INCH) OINTMENT PACKET TP SCH ×4 (00:16→19:39)
[2022-05-04 06:13] LABS: BASOPHILS % (AUTO) 0.2 % (0.0-2.0); EOSINOPHILS % (AUTO) 0.3 % (1.0-6.0); HEMATOCRIT 38.6 % (41-53); HEMOGLOBIN 12.6 g/dL (13.5-17.5); LYMPHOCYTES # (AUTO) 1.9 K/uL (1.0-4.8); LYMPHOCYTES % (AUTO) 17.6 % (22.0-44.0); MEAN CORPUSCULAR HEMOGLOBIN 28.3 pg (26.0-34.0); MEAN CORPUSCULAR HGB CONC 32.6 G/dL (31.0-37.0); MEAN CORPUSCULAR VOLUME 87 fL (80-100); MONOCYTES # (AUTO) 1.3 K/uL (0.1-1.0); MONOCYTES % (AUTO) 11.9 % (2.0-9.0); NEUTROPHILS # (AUTO) 7.7 K/uL (1.8-7.7); PLATELET COUNT (AUTO) 211 K/uL (150-450); RED BLOOD CELL COUNT(AUTO) 4.45 MIL/uL (4.50-5.90); RED CELL DISTRIBUTION WIDTH 14.1 % (11.5-14.5)
[2022-05-04 06:21] LABS: ANION GAP 9 mmol/L (8-16); CALCIUM, TOTAL 7.9 mg/dL (8.8-10.5); CARBON DIOXIDE 28 mmol/L (22-29); CHLORIDE 103 mmol/L (98-107); CREATININE 0.87 mg/dL (0.60-1.30); GLUCOSE,RANDOM 86 mg/dL (70-110); SODIUM SERUM 140 mmol/L (136-145); UREA NITROGEN, BLOOD 17 mg/dL (7-18)
[2022-05-04 06:26] LABS: GLOMERULAR FILTR. RATE CALC > 60 mL/min (>60)
[2022-05-04] MEDS: PredniSONE 10 MG TABLET PO SCH (09:12)
[2022-05-04] MEDS: DOCUSATE SODIUM 100 MG/10 ML LIQUID UDCUP NG SCH ×2 (09:12→20:07)
[2022-05-04] MEDS: PANTOPRAZOLE SODIUM 40 MG/VIAL IVP SCH (09:13)
[2022-05-04] MEDS: CARVEDILOL 25 MG TABLET PO SCH ×2 (09:13→20:03)
[2022-05-04] MEDS: CARBIDOPA/LEVODOPA 25-100 MG TABLET PO SCH ×3 (09:13→20:03)
[2022-05-04] MEDS: APIXABAN 5 MG TABLET PO SCH ×2 (09:13→20:03)
[2022-05-04] MEDS: AmLODIPine BESYLATE 10 MG TABLET PO SCH (09:13)
[2022-05-04] MEDS ORDERED: POTASSIUM CHLORIDE 20 MEQ ER TABLET PO ONE (09:15)
[2022-05-04] MEDS: HydrALAZINE HCL 20 MG/ML VIAL IVP PRN (09:22)
[2022-05-04] MEDS: HYDROCODONE/ACETAMINOPHEN 5-325 MG TABLET PO PRN ×2 (11:51→20:03)
[2022-05-04] MEDS: DOXYCYCLINE HYCLATE 100 MG in DEXTROSE 5%-WATER 100 ML IV SCH ×2 (11:54→21:00)
[2022-05-04] MEDS: POTASSIUM CHL 10 MEQ/WATER 50 ML IV SCH ×2 (12:20→15:57)
[2022-05-04] MEDS: ETHYL ALCOHOL 62% ANTISEPTIC NASAL SANITIZER 0.6 ML AMPUL NASAL SCH ×2 (13:50→20:07)
[2022-05-04] MEDS: SODIUM CHLORIDE 0.9% 1,000 ML IV SCH (13:53)
[2022-05-04] MEDS: MAG HYDROX/AL HYDROX/SIMETH ES 30 ML SUSPENSION UDCUP PO PRN (20:03)
[2022-05-05] MEDS: NITROGLYCERIN 2% (1 GM=INCH) OINTMENT PACKET TP SCH ×5 (00:21→23:25)
[2022-05-05] MEDS: PIPERACILLIN/TAZO 3.375 GM/D5W 50 ML IV SCH ×5 (00:21→23:24)
[2022-05-05 05:47] LABS: BASOPHILS % (AUTO) 0.1 % (0.0-2.0); EOSINOPHILS % (AUTO) 1.3 % (1.0-6.0); HEMATOCRIT 37.8 % (41-53); HEMOGLOBIN 12.5 g/dL (13.5-17.5); LYMPHOCYTES # (AUTO) 1.8 K/uL (1.0-4.8); LYMPHOCYTES % (AUTO) 21.1 % (22.0-44.0); MEAN CORPUSCULAR HEMOGLOBIN 28.6 pg (26.0-34.0); MEAN CORPUSCULAR HGB CONC 33.1 G/dL (31.0-37.0); MEAN CORPUSCULAR VOLUME 87 fL (80-100); MONOCYTES % (AUTO) 11.3 % (2.0-9.0); NEUTROPHILS # (AUTO) 5.8 K/uL (1.8-7.7); NEUTROPHILS % (AUTO) 66.2 % (40.0-70.0); PLATELET COUNT (AUTO) 211 K/uL (150-450); RED BLOOD CELL COUNT(AUTO) 4.37 MIL/uL (4.50-5.90); RED CELL DISTRIBUTION WIDTH 14.1 % (11.5-14.5)
[2022-05-05 06:01] LABS: ANION GAP 4 mmol/L (8-16); CARBON DIOXIDE 28 mmol/L (22-29); CHLORIDE 103 mmol/L (98-107); CREATININE 0.97 mg/dL (0.60-1.30); GLOMERULAR FILTR. RATE CALC > 60 mL/min (>60); GLUCOSE,RANDOM 95 mg/dL (70-110); POTASSIUM 3.2 mmol/L (3.5-5.1); SODIUM SERUM 135 mmol/L (136-145); UREA NITROGEN, BLOOD 20 mg/dL (7-18)
[2022-05-05 06:05] VITALS: BP 144/80
[2022-05-05 07:30] VITALS: BP 147/91
[2022-05-05] MEDS ORDERED: POTASSIUM CHLORIDE 20 MEQ ER TABLET PO ONE (07:45)
[2022-05-05] MEDS: ETHYL ALCOHOL 62% ANTISEPTIC NASAL SANITIZER 0.6 ML AMPUL NASAL SCH ×2 (08:48→20:36)
[2022-05-05] MEDS: DOXYCYCLINE HYCLATE 100 MG in DEXTROSE 5%-WATER 100 ML IV SCH ×2 (08:48→20:36)
[2022-05-05] MEDS: DOCUSATE SODIUM 100 MG/10 ML LIQUID UDCUP NG SCH ×2 (08:49→21:00)
[2022-05-05] MEDS: APIXABAN 5 MG TABLET PO SCH ×2 (08:49→20:36)
[2022-05-05] MEDS: CARVEDILOL 25 MG TABLET PO SCH ×2 (08:49→20:36)
[2022-05-05] MEDS: PredniSONE 10 MG TABLET PO SCH (08:49)
[2022-05-05] MEDS: CARBIDOPA/LEVODOPA 25-100 MG TABLET PO SCH ×3 (08:49→20:36)
[2022-05-05] MEDS: PANTOPRAZOLE SODIUM 40 MG/VIAL IVP SCH (08:49)
[2022-05-05] MEDS: AmLODIPine BESYLATE 10 MG TABLET PO SCH (08:50)
[2022-05-05] MEDS: POTASSIUM CHL 10 MEQ/WATER 50 ML IV SCH ×2 (10:08→11:47)
[2022-05-05 11:35] VITALS: BP 147/99
[2022-05-05 16:45] VITALS: BP 145/94
[2022-05-05 19:20] VITALS: BP 144/89
[2022-05-05] MEDS: MAG HYDROX/AL HYDROX/SIMETH ES 30 ML SUSPENSION UDCUP PO PRN (20:35)
[2022-05-05] MEDS: HYDROCODONE/ACETAMINOPHEN 5-325 MG TABLET PO PRN (20:36)
[2022-05-05] MEDS ORDERED: SODIUM CHLORIDE 0.9% 500 ML IV ONE (23:01)
[2022-05-05 23:45] VITALS: BP 140/77
[2022-05-06 03:45] VITALS: BP 135/71
[2022-05-06 05:48] LABS: BASOPHILS % (AUTO) 0.2 % (0.0-2.0); HEMATOCRIT 38.2 % (41-53); LYMPHOCYTES # (AUTO) 2.2 K/uL (1.0-4.8); LYMPHOCYTES % (AUTO) 22.7 % (22.0-44.0); MEAN CORPUSCULAR HEMOGLOBIN 29.3 pg (26.0-34.0); MEAN CORPUSCULAR VOLUME 86 fL (80-100); MONOCYTES % (AUTO) 10.8 % (2.0-9.0); NEUTROPHILS # (AUTO) 6.3 K/uL (1.8-7.7); NEUTROPHILS % (AUTO) 65.3 % (40.0-70.0); PLATELET COUNT (AUTO) 250 K/uL (150-450); RED BLOOD CELL COUNT(AUTO) 4.43 MIL/uL (4.50-5.90); RED CELL DISTRIBUTION WIDTH 13.9 % (11.5-14.5)
[2022-05-06] MEDS: NITROGLYCERIN 2% (1 GM=INCH) OINTMENT PACKET TP SCH ×4 (05:54→23:54)
[2022-05-06] MEDS: PIPERACILLIN/TAZO 3.375 GM/D5W 50 ML IV SCH ×4 (05:54→23:54)
[2022-05-06] MEDS: HYDROCODONE/ACETAMINOPHEN 5-325 MG TABLET PO PRN ×3 (06:03→18:23)
[2022-05-06 06:08] LABS: ALANINE AMINOTRANSFERASE 26 U/L (12-78); ALBUMIN 2.6 g/dL (3.4-5.0); ALKALINE PHOSPHATASE 77 U/L (46-116); ANION GAP 5 mmol/L (8-16); ASPARTATE AMINOTRANSFERASE 15 U/L (15-37); BILIRUBIN,TOTAL 0.3 mg/dL (0.1-1.0); CALCIUM, TOTAL 8.4 mg/dL (8.8-10.5); CARBON DIOXIDE 26 mmol/L (22-29); CHLORIDE 103 mmol/L (98-107); GLUCOSE,RANDOM 95 mg/dL (70-110); PHOSPHORUS 2.3 mg/dL (2.5-4.9); POTASSIUM 3.5 mmol/L (3.5-5.1); SODIUM SERUM 134 mmol/L (136-145); UREA NITROGEN, BLOOD 17 mg/dL (7-18)
[2022-05-06 06:43] LABS: GLOMERULAR FILTR. RATE CALC > 60 mL/min (>60)
[2022-05-06 08:10] VITALS: BP 132/74
[2022-05-06] MEDS: DOXYCYCLINE HYCLATE 100 MG in DEXTROSE 5%-WATER 100 ML IV SCH ×2 (08:34→20:23)
[2022-05-06] MEDS: DOCUSATE SODIUM 100 MG/10 ML LIQUID UDCUP NG SCH ×3 (08:34→21:30)
[2022-05-06] MEDS: APIXABAN 5 MG TABLET PO SCH ×2 (08:35→20:23)
[2022-05-06] MEDS: AmLODIPine BESYLATE 10 MG TABLET PO SCH (08:35)
[2022-05-06] MEDS: CARVEDILOL 25 MG TABLET PO SCH ×2 (08:35→20:23)
[2022-05-06] MEDS: CARBIDOPA/LEVODOPA 25-100 MG TABLET PO SCH ×3 (08:35→20:23)
[2022-05-06] MEDS: PredniSONE 10 MG TABLET PO SCH (08:35)
[2022-05-06] MEDS: ETHYL ALCOHOL 62% ANTISEPTIC NASAL SANITIZER 0.6 ML AMPUL NASAL SCH ×2 (08:35→20:23)
[2022-05-06] MEDS: PANTOPRAZOLE SODIUM 40 MG/VIAL IVP SCH (08:35)
[2022-05-06] MEDS: MORPHINE SULFATE 2 MG/ML SYRINGE IVP PRN ×2 (08:39→17:49)
[2022-05-06] MEDS: SODIUM,POTASSIUM PHOSPHATES POWDER PACKET PO SCH ×2 (10:43→20:23)
[2022-05-06 11:45] VITALS: BP 152/85
[2022-05-06 17:20] VITALS: BP 147/77
[2022-05-06 20:04] VITALS: BP 143/78
[2022-05-07 00:21] VITALS: BP 126/70
[2022-05-07 04:35] VITALS: BP 155/90
[2022-05-07] MEDS: NITROGLYCERIN 2% (1 GM=INCH) OINTMENT PACKET TP SCH ×3 (05:45→17:54)
[2022-05-07] MEDS: PIPERACILLIN/TAZO 3.375 GM/D5W 50 ML IV SCH ×3 (05:45→17:54)
[2022-05-07 06:18] LABS: BASOPHILS % (AUTO) 0.2 % (0.0-2.0); EOSINOPHILS % (AUTO) 0.6 % (1.0-6.0); HEMATOCRIT 36.5 % (41-53); HEMOGLOBIN 12.6 g/dL (13.5-17.5); LYMPHOCYTES # (AUTO) 1.9 K/uL (1.0-4.8); LYMPHOCYTES % (AUTO) 17.1 % (22.0-44.0); MEAN CORPUSCULAR HEMOGLOBIN 29.9 pg (26.0-34.0); MEAN CORPUSCULAR HGB CONC 34.6 G/dL (31.0-37.0); MEAN CORPUSCULAR VOLUME 86 fL (80-100); MONOCYTES % (AUTO) 9.3 % (2.0-9.0); NEUTROPHILS # (AUTO) 7.9 K/uL (1.8-7.7); NEUTROPHILS % (AUTO) 72.8 % (40.0-70.0); PLATELET COUNT (AUTO) 243 K/uL (150-450); RED BLOOD CELL COUNT(AUTO) 4.23 MIL/uL (4.50-5.90); RED CELL DISTRIBUTION WIDTH 13.9 % (11.5-14.5)
[2022-05-07 06:37] LABS: ANION GAP 2 mmol/L (8-16); CALCIUM, TOTAL 8.4 mg/dL (8.8-10.5); CARBON DIOXIDE 30 mmol/L (22-29); CHLORIDE 103 mmol/L (98-107); CREATININE 0.99 mg/dL (0.60-1.30); GLUCOSE,RANDOM 85 mg/dL (70-110); PHOSPHORUS 2.7 mg/dL (2.5-4.9); POTASSIUM 3.6 mmol/L (3.5-5.1); SODIUM SERUM 135 mmol/L (136-145); UREA NITROGEN, BLOOD 16 mg/dL (7-18)
[2022-05-07 06:38] LABS: GLOMERULAR FILTR. RATE CALC > 60 mL/min (>60)
[2022-05-07 07:13] VITALS: BP 148/70
[2022-05-07] MEDS ORDERED: MAGNESIUM SULFATE 2 GM/WATER 50 ML IV ONE (08:00)
[2022-05-07] MEDS: PANTOPRAZOLE SODIUM 40 MG/VIAL IVP SCH (08:10)
[2022-05-07] MEDS: APIXABAN 5 MG TABLET PO SCH ×2 (08:11→20:01)
[2022-05-07] MEDS: PredniSONE 10 MG TABLET PO SCH (08:11)
[2022-05-07] MEDS: CARBIDOPA/LEVODOPA 25-100 MG TABLET PO SCH ×3 (08:11→20:01)
[2022-05-07] MEDS: HYDROCODONE/ACETAMINOPHEN 5-325 MG TABLET PO PRN ×3 (08:11→18:55)
[2022-05-07] MEDS: CARVEDILOL 25 MG TABLET PO SCH ×2 (08:11→20:01)
[2022-05-07] MEDS: ETHYL ALCOHOL 62% ANTISEPTIC NASAL SANITIZER 0.6 ML AMPUL NASAL SCH ×2 (08:11→20:01)
[2022-05-07] MEDS: AmLODIPine BESYLATE 10 MG TABLET PO SCH (08:11)
[2022-05-07] MEDS: DOXYCYCLINE HYCLATE 100 MG in DEXTROSE 5%-WATER 100 ML IV SCH ×2 (10:31→20:01)
[2022-05-07 11:08] VITALS: BP 149/92
[2022-05-07] MEDS: ENALAPRIL MALEATE 2.5 MG TABLET PO SCH (12:22)
[2022-05-07 15:49] VITALS: BP 153/88
[2022-05-07] MEDS: MORPHINE SULFATE 2 MG/ML SYRINGE IVP PRN ×2 (15:56→20:53)
[2022-05-07] MEDS: DOCUSATE SODIUM 100 MG/10 ML LIQUID UDCUP NG SCH (20:02)
[2022-05-07 20:41] VITALS: BP 154/84
[2022-05-08] VITALS: BP 132/79
[2022-05-08] MEDS: NITROGLYCERIN 2% (1 GM=INCH) OINTMENT PACKET TP SCH ×4 (00:28→17:31)
[2022-05-08] MEDS: PIPERACILLIN/TAZO 3.375 GM/D5W 50 ML IV SCH ×4 (00:28→17:27)
[2022-05-08 05:34] VITALS: BP 143/82
[2022-05-08 06:23] LABS: ANION GAP 5 mmol/L (8-16); CALCIUM, TOTAL 8.3 mg/dL (8.8-10.5); CARBON DIOXIDE 28 mmol/L (22-29); CHLORIDE 105 mmol/L (98-107); CREATININE 1.14 mg/dL (0.60-1.30); GLUCOSE,RANDOM 99 mg/dL (70-110); POTASSIUM 3.6 mmol/L (3.5-5.1); SODIUM SERUM 138 mmol/L (136-145); UREA NITROGEN, BLOOD 21 mg/dL (7-18)
[2022-05-08 06:25] LABS: GLOMERULAR FILTR. RATE CALC > 60 mL/min (>60)
[2022-05-08 06:28] LABS: BASOPHILS % (AUTO) 0.1 % (0.0-2.0); EOSINOPHILS % (AUTO) 0.3 % (1.0-6.0); HEMATOCRIT 35.1 % (41-53); HEMOGLOBIN 11.9 g/dL (13.5-17.5); LYMPHOCYTES % (AUTO) 14.6 % (22.0-44.0); MEAN CORPUSCULAR HEMOGLOBIN 29.3 pg (26.0-34.0); MEAN CORPUSCULAR VOLUME 86 fL (80-100); MONOCYTES # (AUTO) 1.2 K/uL (0.1-1.0); MONOCYTES % (AUTO) 8.5 % (2.0-9.0); NEUTROPHILS # (AUTO) 10.7 K/uL (1.8-7.7); NEUTROPHILS % (AUTO) 76.5 % (40.0-70.0); PLATELET COUNT (AUTO) 268 K/uL (150-450); RED BLOOD CELL COUNT(AUTO) 4.07 MIL/uL (4.50-5.90); RED CELL DISTRIBUTION WIDTH 14.2 % (11.5-14.5)
[2022-05-08 07:44] VITALS: BP 138/80
[2022-05-08] MEDS: DOXYCYCLINE HYCLATE 100 MG in DEXTROSE 5%-WATER 100 ML IV SCH ×2 (08:37→20:54)
[2022-05-08] MEDS: CARVEDILOL 25 MG TABLET PO SCH ×2 (08:38→20:54)
[2022-05-08] MEDS: PANTOPRAZOLE SODIUM 40 MG/VIAL IVP SCH (08:38)
[2022-05-08] MEDS: PredniSONE 10 MG TABLET PO SCH (08:38)
[2022-05-08] MEDS: AmLODIPine BESYLATE 10 MG TABLET PO SCH (08:38)
[2022-05-08] MEDS: ETHYL ALCOHOL 62% ANTISEPTIC NASAL SANITIZER 0.6 ML AMPUL NASAL SCH ×2 (08:38→20:54)
[2022-05-08] MEDS: ENALAPRIL MALEATE 2.5 MG TABLET PO SCH (08:38)
[2022-05-08] MEDS: CARBIDOPA/LEVODOPA 25-100 MG TABLET PO SCH ×3 (08:38→20:54)
[2022-05-08] MEDS: APIXABAN 5 MG TABLET PO SCH ×2 (08:38→20:54)
[2022-05-08] MEDS: HYDROCODONE/ACETAMINOPHEN 5-325 MG TABLET PO PRN ×2 (08:39→17:27)
[2022-05-08] MEDS: DOCUSATE SODIUM 100 MG/10 ML LIQUID UDCUP NG SCH ×2 (08:40→20:55)
[2022-05-08 11:22] VITALS: BP 140/93
[2022-05-08] MEDS ORDERED: AMLO-258 PO (12:23)
[2022-05-08] MEDS ORDERED: CARB1TAB35 PO (12:23)
[2022-05-08] MEDS ORDERED: APIX5TAB PO (12:23)
[2022-05-08] MEDS ORDERED: ENAL2.5T16 PO (12:23)
[2022-05-08] MEDS ORDERED: CARV25 PO (12:23)
[2022-05-08] MEDS ORDERED: DOXY50 PO (12:24)
[2022-05-08] MEDS ORDERED: PRED-729 PO (12:32)
[2022-05-08] MEDS ORDERED: PRED-549 PO (12:32)
[2022-05-08] MEDS ORDERED: PRED-554 PO (12:32)
[2022-05-08 15:23] VITALS: BP 132/79
[2022-05-08 20:15] VITALS: BP 143/97
[2022-05-08] MEDS: MORPHINE SULFATE 2 MG/ML SYRINGE IVP PRN (20:55)
[2022-05-09] VITALS: BP 132/74
[2022-05-09] MEDS: NITROGLYCERIN 2% (1 GM=INCH) OINTMENT PACKET TP SCH ×4 (01:06→17:08)
[2022-05-09] MEDS: PIPERACILLIN/TAZO 3.375 GM/D5W 50 ML IV SCH ×4 (01:06→17:08)
[2022-05-09 03:30] VITALS: BP 156/96
[2022-05-09 05:59] LABS: BASOPHILS % (AUTO) 0.2 % (0.0-2.0); EOSINOPHILS % (AUTO) 0.3 % (1.0-6.0); HEMATOCRIT 36.5 % (41-53); HEMOGLOBIN 12.2 g/dL (13.5-17.5); LYMPHOCYTES # (AUTO) 1.9 K/uL (1.0-4.8); MEAN CORPUSCULAR HEMOGLOBIN 28.9 pg (26.0-34.0); MEAN CORPUSCULAR HGB CONC 33.4 G/dL (31.0-37.0); MEAN CORPUSCULAR VOLUME 86 fL (80-100); MONOCYTES # (AUTO) 1.2 K/uL (0.1-1.0); MONOCYTES % (AUTO) 7.6 % (2.0-9.0); NEUTROPHILS # (AUTO) 12.4 K/uL (1.8-7.7); NEUTROPHILS % (AUTO) 79.9 % (40.0-70.0); PLATELET COUNT (AUTO) 265 K/uL (150-450); RED BLOOD CELL COUNT(AUTO) 4.23 MIL/uL (4.50-5.90); RED CELL DISTRIBUTION WIDTH 14.2 % (11.5-14.5)
[2022-05-09 07:29] VITALS: BP 138/83
[2022-05-09] MEDS: DOCUSATE SODIUM 100 MG/10 ML LIQUID UDCUP NG SCH ×2 (09:09→20:48)
[2022-05-09] MEDS: PredniSONE 10 MG TABLET PO SCH (09:09)
[2022-05-09] MEDS: CARVEDILOL 25 MG TABLET PO SCH ×2 (09:09→20:48)
[2022-05-09] MEDS: CARBIDOPA/LEVODOPA 25-100 MG TABLET PO SCH ×3 (09:09→20:48)
[2022-05-09] MEDS: APIXABAN 5 MG TABLET PO SCH ×2 (09:09→20:48)
[2022-05-09] MEDS: AmLODIPine BESYLATE 10 MG TABLET PO SCH (09:10)
[2022-05-09] MEDS: ENALAPRIL MALEATE 2.5 MG TABLET PO SCH (09:10)
[2022-05-09] MEDS: PANTOPRAZOLE SODIUM 40 MG/VIAL IVP SCH (09:11)
[2022-05-09] MEDS: DOXYCYCLINE HYCLATE 100 MG in DEXTROSE 5%-WATER 100 ML IV SCH ×2 (09:11→20:47)
[2022-05-09] MEDS: ETHYL ALCOHOL 62% ANTISEPTIC NASAL SANITIZER 0.6 ML AMPUL NASAL SCH ×2 (09:12→20:47)
[2022-05-09] MEDS: HYDROCODONE/ACETAMINOPHEN 5-325 MG TABLET PO PRN (11:18)
[2022-05-09 11:29] VITALS: BP 132/67
[2022-05-09 15:43] VITALS: BP 111/78
[2022-05-09 20:00] VITALS: BP 133/91
[2022-05-10] VITALS: BP 131/74
[2022-05-10] MEDS: PIPERACILLIN/TAZO 3.375 GM/D5W 50 ML IV SCH ×2 (00:25→05:31)
[2022-05-10 04:00] VITALS: BP 146/81
[2022-05-10] MEDS: NITROGLYCERIN 2% (1 GM=INCH) OINTMENT PACKET TP SCH ×2 (05:31)
[2022-05-10] MEDS: PANTOPRAZOLE SODIUM 40 MG/VIAL IVP SCH (07:45)
[2022-05-10] MEDS: AmLODIPine BESYLATE 10 MG TABLET PO SCH (07:45)
[2022-05-10] MEDS: DOXYCYCLINE HYCLATE 100 MG in DEXTROSE 5%-WATER 100 ML IV SCH (07:46)
[2022-05-10] MEDS: PredniSONE 10 MG TABLET PO SCH (07:46)
[2022-05-10] MEDS: ENALAPRIL MALEATE 2.5 MG TABLET PO SCH (07:46)
[2022-05-10] MEDS: CARBIDOPA/LEVODOPA 25-100 MG TABLET PO SCH (07:46)
[2022-05-10] MEDS: APIXABAN 5 MG TABLET PO SCH (07:46)
[2022-05-10] MEDS: CARVEDILOL 25 MG TABLET PO SCH (07:46)
[2022-05-10] MEDS: DOCUSATE SODIUM 100 MG/10 ML LIQUID UDCUP NG SCH (07:47)
[2022-05-10] MEDS: ETHYL ALCOHOL 62% ANTISEPTIC NASAL SANITIZER 0.6 ML AMPUL NASAL SCH (07:47)
[2022-05-10] MEDS: HYDROCODONE/ACETAMINOPHEN 5-325 MG TABLET PO PRN (08:08)
== END 2022-05-10 13:35 | disposition home health service (06) | DRG 208 ==
LOC: EMS 08:47 → ICU 16:02 → 5S 05-02 02:15
PROVIDERS: ADMIT Internal Medicine; ATTEND Internal Medicine
PROC: 5A1945Z Respiratory Ventilation, 24-96 Consecutive Hours (ICD-10-PCS; principal; 2022-04-28)
PROC: 0BH17EZ Insertion of Endotracheal Airway into Trachea, Via Natural or Artificial Opening (ICD-10-PCS; 2022-04-28)
PROC: 05H933Z Insertion of Infusion Device into Right Brachial Vein, Percutaneous Approach (ICD-10-PCS; 2022-04-28)
DX: J96.01 Acute respiratory failure with hypoxia (principal); J69.0 Pneumonitis due to inhalation of food and vomit; G92.8 Other toxic encephalopathy; N17.0 Acute kidney failure with tubular necrosis; R65.11 Systemic inflammatory response syndrome (SIRS) of non-infectious origin with acute organ dysfunction; M62.82 Rhabdomyolysis; J44.1 Chronic obstructive pulmonary disease with (acute) exacerbation; I50.42 Chronic combined systolic (congestive) and diastolic (congestive) heart failure; I13.0 Hypertensive heart and chronic kidney disease with heart failure and stage 1 through stage 4 chronic kidney disease, or unspecified chronic kidney disease; E87.6 Hypokalemia; E78.00 Pure hypercholesterolemia, unspecified; E83.39 Other disorders of phosphorus metabolism; E83.42 Hypomagnesemia; F15.10 Other stimulant abuse, uncomplicated; F20.9 Schizophrenia, unspecified; G20 Parkinson's disease; I25.5 Ischemic cardiomyopathy; F31.9 Bipolar disorder, unspecified; K21.9 Gastro-esophageal reflux disease without esophagitis; N18.9 Chronic kidney disease, unspecified; Z51.5 Encounter for palliative care; Z79.01 Long term (current) use of anticoagulants; Z86.711 Personal history of pulmonary embolism; Z79.899 Other long term (current) drug therapy
CPT/HCPCS: 36245; 36569; 36600; 71045; 71250; 74230; 76770; 76937; 80048; 80053; 81001; 81002; 82043; 82550; 82570; 82805; 83735; 83880; 84100; 84132; 84156; 84300; 84484; 84540; 85025; 85610; 85730; 87070; 87081; 87449; 87804; 87899; 92521; 92526; 92610; 93005; 94002; 94003; 94640; 97163; 97530; 99291; C8929; C9113; G0378; J0360; J1940; J2270; J2543; J2704; J2930; J3475; J3480; J3490; J7030; J7040; J7050; J7060; Q9967; 36415-L1; 36415-TC; C8928; J7512; J7613; Z7610